=== PATIENT | male | born 1950 | race Caucasian/White ===

== ENCOUNTER 2018-03-21 08:21 | Day surgery (SDC) | payer BC ==
[~2018-03-21 08:21] MED LIST: LIDOCAINE HCL 1% MPF 30 SOL ONE; PROPOFOL 500 MG/50 ML EMU IV ONE
[2018-03-21 10:24] VITALS: PULSE 73; RESP 16; TEMP 98.5; O2SAT 96
[2018-03-21 10:32] VITALS: BP 186/112
== END 2018-03-21 10:48 | disposition home or self-care (01) | DRG 951 ==
LOC: SURG 08:21
PROVIDERS: ATTEND Surgery
DX: Z12.11 Encounter for screening for malignant neoplasm of colon (principal); K57.32 Diverticulitis of large intestine without perforation or abscess without bleeding; R19.5 Other fecal abnormalities
CPT/HCPCS: J2001; J2704

== ENCOUNTER 2018-08-15 21:41 | Emergency (ER) | payer BC ==
[2018-08-15 22:26] LABS: BASOPHILS % (AUTO) 1 % (0-3); EOSINOPHILS % (AUTO) 1 % (0-9); HEMATOCRIT 49 % (39-53); HEMOGLOBIN 16.6 gm/dl (13.5-17.7); LYMPHOCYTES % (AUTO) 23.1 % (10-50); MEAN CORPUSCULAR HEMOGLOBIN 31.9 pg (27.0-32.0); MEAN CORPUSCULAR VOLUME 94 fL (80-100); NEUTROPHILS % (AUTO) 63.8 % (37-80)
[2018-08-15 22:35] VITALS: TEMP 97.7
[2018-08-15 22:44] LABS: ALBUMIN 3.3 gm/dl (3.4-5.0); ALKALINE PHOSPHATASE 83 IU/L (46-116); ALT 38 IU/L (14-63); AST 30 IU/L (15-37); BILIRUBIN,TOTAL 1.1 mg/dl (0.2-1.0); BLOOD UREA NITROGEN 13 mg/dl (7-18); CALCIUM 8.7 mg/dl (8.5-10.1); CARBON DIOXIDE 26.9 mEq/L (21-32); CHLORIDE 98 mMol/L (98-107); CREATININE 1.18 mg/dl (0.80-1.30); GLUCOSE 182 mg/dl (74-106); POTASSIUM 3.6 mMol/L (3.5-5.1); SODIUM 132 mMol/L (136-145); TOTAL PROTEIN 7.5 gm/dl (6.4-8.2); TROP I < 0.017 ng/ml (0.000-0.056)
[2018-08-15 22:52] LABS: LACTIC ACID 1.2 mMol/L (0.0-2.0)
[2018-08-15] MEDS ORDERED: KETOROLAC TROMETHAMINE 30 MG/ML SOL IV ONE (23:02)
[2018-08-15] MEDS ORDERED: APAP/HYDROCODONE 1 EACH TABLET PO ONE (23:02)
[2018-08-15] MEDS ORDERED: APAP/HYDROCODONE 1 EACH TABLET ONE (23:11)
[2018-08-15] MEDS ORDERED: KETOROLAC TROMETHAMINE 30 MG/ML SOL ONE (23:11)
[2018-08-15 23:46] VITALS: BP 153/81; PULSE 92; RESP 20; O2SAT 95
== END 2018-08-15 23:28 | disposition home or self-care (01) | DRG 563 ==
LOC: ED 21:41
DX: S29.011A Strain of muscle and tendon of front wall of thorax, initial encounter (principal); R06.02 Shortness of breath
CPT/HCPCS: 36415; 71045; 80053; 84484; 85025; 93005; 96374; 99283; 99284; J1885; A9270-GY